=== PATIENT | female | born 1945 | race Caucasian/White ===

== ENCOUNTER 2018-05-04 15:05 | Emergency (ER) | payer MEDICARE ==
[2018-05-04] MEDS ORDERED: Lidocaine 2% 10 ML INJ ONE (15:22)
[2018-05-04] MEDS ORDERED: Rabies Vaccine Human 2.5 UNITS VIAL ONE (15:23)
[2018-05-04] MEDS ORDERED: Fentanyl 100 MCG/2 ML VIAL ONE (15:48)
[2018-05-04] MEDS ORDERED: Bacitracin Zinc 1 Packet ONE (16:10)
[2018-05-04] MEDS ORDERED: cefTRIAXone\\ROCEPHIN 1 GM VIAL ONE (16:43)
[2018-05-04] MEDS ORDERED: Lidocaine 1% PF 5 ML VIAL ONE (16:43)
== END 2018-05-04 17:05 | disposition home or self-care (01) ==
LOC: SCSER 15:05
DX: L03.115 Cellulitis of right lower limb (principal); F17.210 Nicotine dependence, cigarettes, uncomplicated
CPT/HCPCS: 10060; 87070; 87077; 87186; 87205; 90375; 90471; 90675; 96372; J0696; J2001; J3010

== ENCOUNTER 2018-05-05 16:46 | Emergency (ER) | payer MEDICARE | END 2018-05-05 17:33 | disposition home or self-care (01) | LOC: SCSER 16:46 | DX: Z48.817 Encounter for surgical aftercare following surgery on the skin and subcutaneous tissue (principal); Z71.6 Tobacco abuse counseling; F17.210 Nicotine dependence, cigarettes, uncomplicated; Z79.899 Other long term (current) drug therapy | CPT/HCPCS: 99406 ==

== ENCOUNTER 2018-05-08 13:27 | Emergency (ER) | payer MEDICARE | END 2018-05-08 14:00 | disposition home or self-care (01) | LOC: SCSER 13:27 | DX: Z48.817 Encounter for surgical aftercare following surgery on the skin and subcutaneous tissue (principal); F17.210 Nicotine dependence, cigarettes, uncomplicated; Z79.899 Other long term (current) drug therapy ==

== ENCOUNTER 2018-05-08 17:32 | Inpatient (IN) | payer MEDICARE ==
[2018-05-08 18:03] LABS: #Eosinphils 0.1 thou/uL (0.0-0.7); #Lymphocytes 1.4 thou/uL (1.20-3.40); #Monocytes 0.4 thou/uL (0.11-0.59); #Neutrophils 5.6 thou/uL (1.40-6.50); %Basophils 0.5 % (0.0-1.0); %Lymphocytes 18.2 % (21.0-51.0); %Monocytes 5.7 % (0.0-10.0); %Neutrophils 74.7 % (42.0-75.0); Hemoglobin 13.5 g/dL (12.0-16.0); Mean Corpuscular HGB CONC 34.6 g/dL (32.0-36.0); Mean Corpuscular Hemoglobin 33.4 pg (27.0-31.0); Mean Corpuscular Volume 96.6 fL (78.0-98.0); Mean Platelet Volume 6.9 fL (7.4-10.4); Platelet Count 297 thou/uL (130-400); RBC Distribution Width 11.8 % (11.5-14.5); Red Blood Cell (RBC) Count 4.04 mill/uL (4.20-5.40); White Blood Cell (WBC) Count 7.5 thou/uL (4.8-10.8)
[2018-05-08] MEDS ORDERED: Ondansetron HCl/PF 4 MG/2 ML Vial ONE (18:11)
[2018-05-08 18:28] LABS: CKMB 0.6 ng/mL (0-6.6); Troponin I Less than 0.010 ng/mL (< 0.028)
--- NOTE | 2018-05-08 19:13 | ULT ---
SONOGRAM RIGHT UPPER QUADRANT: HISTORY: Right upper quadrant pain. FINDINGS: Multiple shadowing stones throughout the gallbladder lumen. No gallbladder wall thickening or perich olecystic fluid. The gallbladder is dilated, up to 10.9 cm. The common duct is 1.2 cm. The liver i s unremarkable without a focal mass. No free fluid. IMPRESSION: 1. Cholelithiasis. 2. Dilatation of the common duct and distention of the gallbladder may reflect central biliary obstr uction. Clinical correlation regarding other signs and symptoms of central biliary obstruction and/o r acute cholecystitis is required. POS: [facility]
[2018-05-08 19:35] LABS: ALT (SGPT) 372 U/L (8-55); AST (SGOT) 341 U/L (5-34); Albumin 3.8 g/dL (3.4-4.8); Alkaline Phosphatase 418 U/L (40-150); Anion Gap 18 mmol/L (10-20); BUN (Urea Nitrogen) 15 mg/dL (9.8-20.1); Bilirubin, Total 1.8 mg/dL (0.2-1.2); Calc. Creatinine Clearance 0 mL/min (70-130); Calcium 9.9 mg/dL (7.8-10.44); Carbon Dioxide 22 mmol/L (23-31); Chloride 104 mmol/L (98-107); Estimated GFR-MDRD 76; Globulin 3.1 g/dL (2.4-3.5); Glucose 132 mg/dL (83-110); Lipase 28 U/L (8-78); Potassium 3.8 mmol/L (3.5-5.1); Protein, Total 6.9 g/dL (6.0-8.3); Sodium 140 mmol/L (136-145)
[2018-05-08] MEDS ORDERED: Morphine 4 MG/ML VIAL ONE (21:06)
[2018-05-08] MEDS ORDERED: Dextrose 50% Abboject 50 ML SYRINGE SLOW IVP PRN (22:04)
[2018-05-08] MEDS ORDERED: Famotidine/PF 20 mg/2ml Vial SLOW IVP SCH (22:04)
[2018-05-08] MEDS ORDERED: Ketorolac Tromethamine 30 MG/ML VIAL IVP PRN (22:04)
[2018-05-08] MEDS ORDERED: Promethazine HCl 25 MG/ML VIAL IM PRN (22:04)
[2018-05-08] MEDS ORDERED: Calcium Carbonate 500 MG ChewTAB PO PRN (22:04)
[2018-05-08] MEDS ORDERED: Famotidine 20 MG TAB PO SCH ×2 (22:04→23:45)
[2018-05-08] MEDS ORDERED: Dextrose 5% in Water 1,000 ML IV PRN (22:04)
[2018-05-08] MEDS ORDERED: Morphine 4 MG/ML VIAL SLOW IVP PRN (22:04)
[2018-05-08] MEDS ORDERED: hydrALAZINE 20 MG/ML VIAL SLOW IVP PRN (22:04)
[2018-05-08] MEDS ORDERED: Mag-Al 1200 mg/1200 mg/30 ML UDCUP PO PRN (22:04)
[2018-05-08] MEDS ORDERED: cefOXitin 2 GM in Sodium Chloride 0.9% 100 ML IVPB SCH (22:30)
[2018-05-08] MEDS: D5 1/2 NS w/20 mEq KCL 1,000 ML IV SCH (23:06)
[2018-05-09] MEDS: cefOXitin 2 GM in Sodium Chloride 0.9% 100 ML IVPB SCH ×3 (05:41→21:56)
[2018-05-09 05:55] VITALS: BMI 32.3
[2018-05-09 06:03] LABS: #Eosinphils 0.1 thou/uL (0.0-0.7); #Monocytes 0.6 thou/uL (0.11-0.59); #Neutrophils 3.1 thou/uL (1.40-6.50); %Basophils 0.3 % (0.0-1.0); %Eosinophils 2.2 % (0.0-10.0); %Lymphocytes 33.7 % (21.0-51.0); %Monocytes 10.7 % (0.0-10.0); Hemoglobin 11.4 g/dL (12.0-16.0); Mean Corpuscular HGB CONC 33.4 g/dL (32.0-36.0); Mean Corpuscular Hemoglobin 32.7 pg (27.0-31.0); Mean Corpuscular Volume 97.7 fL (78.0-98.0); Platelet Count 262 thou/uL (130-400); RBC Distribution Width 11.9 % (11.5-14.5); White Blood Cell (WBC) Count 5.8 thou/uL (4.8-10.8)
[2018-05-09 06:17] LABS: ALT (SGPT) 425 U/L (8-55); AST (SGOT) 405 U/L (5-34); Albumin 3.2 g/dL (3.4-4.8); Alkaline Phosphatase 357 U/L (40-150); Anion Gap 12 mmol/L (10-20); BUN (Urea Nitrogen) 9 mg/dL (9.8-20.1); Calc. Creatinine Clearance 94 mL/min (70-130); Calcium 8.8 mg/dL (7.8-10.44); Carbon Dioxide 27 mmol/L (23-31); Chloride 105 mmol/L (98-107); Estimated GFR-MDRD 82; Globulin 2.4 g/dL (2.4-3.5); Glucose 131 mg/dL (83-110); Lipase 12 U/L (8-78); Potassium 3.8 mmol/L (3.5-5.1); Protein, Total 5.6 g/dL (6.0-8.3); Sodium 140 mmol/L (136-145)
[2018-05-09] MEDS: Ondansetron HCl/PF 4 MG/2 ML Vial IVP PRN ×2 (06:39→21:56)
[2018-05-09] MEDS: D5 1/2 NS w/20 mEq KCL 1,000 ML IV SCH ×2 (08:36→17:34)
[2018-05-09] MEDS: Famotidine 20 MG TAB PO SCH ×2 (08:37→20:34)
--- NOTE | 2018-05-09 09:42 | HP ---
CHIEF COMPLAINT: Epigastric pain. HISTORY OF PRESENT ILLNESS: This is a 72-year-old female with no significant past medical history wh o saw me in February of this year in the office for gallstones. She had had 1 attack previously. She dobbs s never had a history of jaundice or pancreatitis. In fact, her attack at that point had been fairly mild and she was holding off on surgery until a later date given her overall lack of symptoms. She now presents with a 2-day history of epigastric pain associated with nausea. Pain was unrelenting. She went to the emergency room overnight. She was seen by Dr. Parikh and found to have a dilated c ommon bile duct, gallstones and elevated liver function test. No fevers or chills. She has been hem odynamically stable. PAST MEDICAL HISTORY: She denies. PAST SURGICAL HISTORY: Hysterectomy. MEDICINES TAKEN DAILY: She is on Keflex and doxycycline for a cat bite to her right lower extremity. ALLERGIES: PENICILLIN. SOCIAL HISTORY: No smoking, alcohol or other drugs. REVIEW OF SYSTEMS: Ten system review of systems otherwise negative unless described above. PHYSICAL EXAMINATION: VITAL SIGNS: Blood pressure is 135/89, pulse 69, respirations 18. She is afebrile. HEENT: Sclerae are anicteric. Oropharynx clear. NECK: No lymphadenopathy. CHEST: Clear. HEART: Regular rhythm. ABDOMEN: Soft. She is tender epigastric. No guarding or rebound. Well-healed low midline incision . EXTREMITIES: No ischemia or edema to extremities. There is open wound to the right lower extremity. There is no packing in place. LABORATORY DATA: White cell count is 5, hemoglobin 11, platelet count is 262. Sodium 140, potassium 3.8, creatinine 0.7. Bilirubin is up to 2, AST and ALT 405 and 425, alkaline phosphatase 357. Lipa se normal. Ultrasound shows a 12 mm common bile duct, gallstones. ASSESSMENT: Likely choledocholithiasis and cholelithiasis. PLAN: I discussed with Dr. Maldonado Martinez. I suspect she will need ERCP first followed by cholecystecto my. No real signs of cholangitis at this time. We will continue the doxycycline and she is covered with Mefoxin. Will have some wound care started on her leg.
[2018-05-09] MEDS: Doxycycline 100 MG CAP PO SCH ×2 (10:07→20:33)
--- NOTE | 2018-05-09 19:11 | CON ---
DATE OF CONSULTATION: 05/09/2018 REASON FOR CONSULTATION: Probable biliary stone. REQUESTING PHYSICIAN: Dr. Ferreira. HISTORY OF PRESENT ILLNESS: Saba Echevarria is a very pleasant 72-year-old woman with a history signifi cant only for hysterectomy and recent cat bite, for which she has been on antibiotics. She has no pr ior gastrointestinal or surgical history other than this. She reports that a few months ago, she had a couple of days of significant upper abdominal pain and was found to have gallstones. She was alre seble undergoing some workup for this, but then yesterday morning, she had the acute onset of severe un relenting pain in the epigastrium associated with nausea. There has been no fever, no emesis. She r emained hemodynamically stable and she continued to have normal bowel movements, but the pain was unr elenting and so she presented to the hospital last night. Abdominal ultrasound demonstrated cholelit hiasis without gallbladder thickening or fluid collection, and common bile duct dilation to 1.2 cm. The gallbladder is also dilated. The liver appears normal. Her LFTs are elevated with total bilirub in 2.0, alkaline phosphatase 357, AST 405, ALT 425, albumin 3.2 with some analgesia and antiemetics. She is feeling a lot better today. We are consulted for consideration of ERCP given the biliary dil ation and elevation in LFTs. The patient is actually asymptomatic at the moment. REVIEW OF SYSTEMS: Full review of systems including constitutional, head, eyes, ears, nose, throat, GI, , cardiovascular, respiratory, musculoskeletal, and neurologic systems is negative except as no dane in the HPI. PAST MEDICAL HISTORY: Nothing significant. PAST SURGICAL HISTORY: Hysterectomy. OUTPATIENT MEDICATIONS: Keflex and doxycycline. ALLERGIES: PENICILLIN. INPATIENT MEDICATIONS: Cefoxitin 2 grams q.8 hours, doxycycline 100 mg b.i.d., Pepcid 20 mg q.12 tiffanie rs, and Zofran p.r.n. SOCIAL HISTORY: No smoking, alcohol, or drug use. FAMILY HISTORY: Negative for known GI malignancy. PHYSICAL EXAMINATION: VITAL SIGNS: Temperature 97.8, pulse is 60, blood pressure 110/67, and 97% oxygen saturation on room air. GENERAL: A 72-year-old woman lying in bed comfortably in no distress. SKIN: No jaundice, no rash visible or palpable. EYES: No scleral icterus. Extraocular movements intact. ENT: Mucous membranes moist, no oral lesions. LYMPH: No submandibular, supraclavicular lymphadenopathy. THYROID: Nontender to palpation. HEART: Regular rate and rhythm. LUNGS: Clear to auscultation bilaterally. ABDOMEN: Bowel sounds present, soft and nontender to palpation just a soft and tender to palpation i n the epigastrium, but no guarding, rebound tenderness. EXTREMITIES: No peripheral edema. VESSELS: Radial pulses 2+ bilaterally. NEUROLOGICAL: Cranial nerves II-XII intact bilaterally. No focal deficits. LABORATORY STUDIES: WBC 5.8, hemoglobin 11.4, platelets 262. BUN 9, creatinine 0.7, lipase 12, tota l bilirubin 2.0, alkaline phosphatase 357, AST 405, ALT 425, albumin 3.2. IMAGING STUDIES: Abdominal ultrasound shows cholelithiasis and dilated gallbladder and dilated commo n bile duct of 1.2 cm. There is no gallbladder wall thickening or pericholecystic fluid. Liver appe ars normal. ASSESSMENT AND PLAN: 1. Cholelithiasis. 2. Common bile duct dilation. 3. Elevated liver function tests. I discussed with the patient that her constellation of symptoms and findings gives a high probability of retained common bile duct stone. Despite this, there is no evidence of cholangitis with normal w max count and no fever. I do agree with antibiotic coverage and with plan for cholecystectomy. She does indeed warrant preoperative ERCP, we will plan to get this done tomorrow. I discussed the shanel cations for the procedure as well as the benefits and potential risk, particularly for post-ERCP panc reatitis. The patient expresses agreement and desires to proceed. We will plan for ERCP tomorrow. Thank you for the consultation. Please call any time with questions or concerns.
[2018-05-10] MEDS: D5 1/2 NS w/20 mEq KCL 1,000 ML IV SCH ×4 (01:14→22:30)
[2018-05-10] MEDS: cefOXitin 2 GM in Sodium Chloride 0.9% 100 ML IVPB SCH ×3 (06:05→22:31)
[2018-05-10] MEDS: Famotidine 20 MG TAB PO SCH ×2 (08:37→22:30)
[2018-05-10] MEDS: Doxycycline 100 MG CAP PO SCH ×2 (08:37→22:31)
--- NOTE | 2018-05-10 11:57 | PRG ---
DATE OF SERVICE: 05/10/2018 Ms. Echevarria is complaining of some urinary urgency and inability to completely void. Her abdominal pa in is improved. Her abdomen is soft, tender epigastric. Her vital signs are stable and she is afebr ile. ASSESSMENT: Cholelithiasis with choledocholithiasis. PLAN: ERCP today, laparoscopic cholecystectomy tomorrow, likely home Tuesday. Continue to pack right lower extremity wound.
[2018-05-10] MEDS ORDERED: Iothalamate Meglumine 60% 50 ML VIAL FS ONE (17:51)
[2018-05-10] MEDS ORDERED: Indomethacin 50 MG SUPP ONE ×2 (17:52→17:53)
[2018-05-10] MEDS ORDERED: Midazolam HCl 2 mg/2 ml Vial ONE (17:58)
[2018-05-10] MEDS ORDERED: Fentanyl 100 MCG/2 ML VIAL ONE (17:58)
[2018-05-10] MEDS ORDERED: Promethazine HCl 25 MG/ML VIAL SLOW IVP PRN (19:08)
[2018-05-10] MEDS ORDERED: Promethazine HCl 25 MG/ML VIAL IM PRN (19:08)
[2018-05-10] MEDS ORDERED: Ondansetron HCl/PF 4 MG/2 ML Vial IVP PRN (19:08)
--- NOTE | 2018-05-10 19:47 | RAD ---
ERCP INTRAOPERATIVE FLUOROSCOPY 05/10/18 HISTORY: Cholecystitis. FINDINGS/IMPRESSION: Intraoperative fluoroscopy is provided for ERCP procedure. There is catheterization and contrast opac ification of the common duct that is upper limits of normal in size. No filling defects of the common duct are reliably demonstrated although there is partial opacification of a gallbladder with multipl e filling defects consistent with gallstones. POS: [facility]
[2018-05-10] MEDS ORDERED: Clopidogrel Bisulfate 75 MG TAB ONE (20:05)
--- NOTE | 2018-05-10 23:25 | OP ---
DATE OF PROCEDURE: 05/10/2018 PROCEDURE: Endoscopic retrograde cholangiopancreatography with sphincterotomy and stone extraction. INDICATION FOR PROCEDURE: Choledocholithiasis. DESCRIPTION OF PROCEDURE: After the risks and benefits of the procedure were explained to the patien t including risks of bleeding, infection, perforation, reactions to anesthesia, aspiration and/or kari n, informed consent was obtained. The patient was then taken to the endoscopy suite where general en dotracheal tube intubation was performed with general anesthesia. Once intubation was performed and adequate sedation was achieved, the patient was then rolled into a supine position in preparation for the procedure. Once in proper position and fluoroscopy was confirmed, the standard duodenoscope was introduced into the mouth with intubation of the esophagus, stomach and the proximal small intestine with the findings listed below. There were limited views of the esophagus, stomach and small intest ine during this portion of the examination; however, the ampulla was adequately identified. Once christina ntified, a 5 mm sphincterotome was introduced into the ampulla with a guidewire placed within the hep atic biliary tree. Once the wire was successfully in place, contrast was instilled into the common b ile duct with two filling defects noted within the mid to proximal common bile duct. Then, using the sphincterotome, an adequate sphincterotomy was performed with good hemostasis achieved afterwards, g olden bile was seen emanating from the ampulla after the sphincterotomy. Then using a balloon, it wa s advanced into the common bile duct using fluoroscopy with the balloon inflated to approximately 12 mm in size and successfully extracting 2 stones from the common bile duct. The stones were yellow an d dark pigmented in coloration with the stones measuring approximately 4 mm and 3-4 mm in size respec tively. Repeat occlusion cholangiogram after the extraction of the stones was performed with no di tional filling defects. Two additional balloon sweeps were performed in the common bile duct with no additional stones extracted. At which point, all equipment was then removed from the patient and th e procedure was terminated. The patient tolerated the procedure well with no immediate perioperative complications. Indomethacin 100 mg per rectum was administered prior to the ERCP. ERCP FINDINGS: Limited views were obtained of the esophagus, stomach and the proximal small intestin e, but with the views obtained, normal appearing mucosa was seen in the esophagus, stomach and proxim al small intestine with no evidence of erosions, ulcerations, mass, lesions, or active/recent bleedin g. Once the ampulla was identified, a 5 mm sphincterotome was advanced into the ampulla and using a guidewire maintained position within the hepatic biliary tree. Two filling defects were identified w ith instillation of contrast dye with the common bile duct measuring approximately 9-10 mm in size, a t which point a successful sphincterotomy was performed using the sphincterotome with good hemostasis achieved. Once an adequate sphincterotomy was performed, a balloon was advanced into the sphinctero yasmani and the common bile duct with successive balloon sweeps performed. Two stones were extracted fr om the common bile duct with yellow pigmented color and dark pigmented coloration measuring approxima tely 4 mm and 3-4 mm respectively. Three successive balloon sweeps afterward were performed with no additional stones extracted and occlusion cholangiogram performed at the end of the procedure showing no additional filling defects within the common bile duct. At which point, all equipment was then r emoved from the patient and the procedure terminated. IMPRESSION: Presence of choledocholithiasis with a dilated common bile duct to 9-10 mm in size, now status post sphincterotomy and successful extraction of 2 pigmented stones measuring 3-4 mm and 4 mm. RECOMMENDATIONS: 1. Would continue to trend LFTs tomorrow for evaluation of the liver parenchyma/transaminitis and no ting decrease following successful stone extraction. 2. Would defer to General Surgery service for timing of cholecystectomy, but should be performed dur ing this hospitalization. 3. We will monitor for signs of post-ERCP pancreatitis. 4. Would continue with antibiotic administration as you are doing until time of the cholecystectomy. We will continue to follow. Please call with any additional questions.
[2018-05-11] MEDS: cefOXitin 2 GM in Sodium Chloride 0.9% 100 ML IVPB SCH (05:48)
[2018-05-11] MEDS: D5 1/2 NS w/20 mEq KCL 1,000 ML IV SCH (08:51)
[2018-05-11] MEDS: Famotidine 20 MG TAB PO SCH ×2 (08:52→22:12)
[2018-05-11] MEDS: Doxycycline 100 MG CAP PO SCH (08:52)
[2018-05-11] MEDS ORDERED: Bupivacaine/Epinephrine 0.25% 30 ML VIAL ONE (10:51)
[2018-05-11] MEDS ORDERED: Fentanyl 100 MCG/2 ML VIAL ONE ×4 (10:55→12:34)
[2018-05-11] MEDS ORDERED: Mag-Al 1200 mg/1200 mg/30 ML UDCUP PO PRN (13:26)
[2018-05-11] MEDS ORDERED: hydrALAZINE 20 MG/ML VIAL SLOW IVP PRN (13:26)
[2018-05-11] MEDS ORDERED: Calcium Carbonate 500 MG ChewTAB PO PRN (13:26)
[2018-05-11] MEDS ORDERED: HYDROcodone/Acetaminophen 10/325 mg Tablet PO PRN (13:26)
[2018-05-11] MEDS ORDERED: Ondansetron HCl/PF 4 MG/2 ML Vial IVP PRN (13:26)
[2018-05-11] MEDS ORDERED: Dextrose 50% Abboject 50 ML SYRINGE SLOW IVP PRN (13:26)
[2018-05-11] MEDS ORDERED: Dextrose 5% in Water 1,000 ML IV PRN (13:26)
[2018-05-11] MEDS ORDERED: Promethazine HCl 25 MG/ML VIAL IM PRN (13:26)
[2018-05-11] MEDS ORDERED: Morphine 4 MG/ML VIAL SLOW IVP PRN (13:26)
[2018-05-11] MEDS ORDERED: Rabies Vaccine Human 2.5 UNITS VIAL IM ONE (13:30)
--- NOTE | 2018-05-11 14:36 | OP ---
DATE OF PROCEDURE: 05/11/2018 PREOPERATIVE DIAGNOSES: Symptomatic cholelithiasis, choledocholithiasis. POSTOPERATIVE DIAGNOSES: Symptomatic cholelithiasis, choledocholithiasis. PROCEDURE: Laparoscopic cholecystectomy. SURGEON: Dr. Ferreira. ANESTHESIA: General. ESTIMATED BLOOD LOSS: Minimal. COMPLICATIONS: None. SPECIMEN: Gallbladder. FINDINGS: Cholelithiasis. PROCEDURE IN DETAIL: The patient was taken to the Operating Room and laid supine on the Operating Ro om table. After general anesthetic was obtained, the abdomen was prepped and draped in a sterile fash ion. A curved incision was made below the umbilicus. Cautery was used to dissect down to the umbilica l fascia. Umbilical fascia was incised and held up using a Maricarmen. The abdominal cavity was entered u sing a Flori clamp. Holding stitch of Vicryl was placed on each side of the fascia. Villar trocar was placed. High-flow pneumoperitoneum was obtained. An upper midline 5-mm port and two right upper quad rant 5-mm ports were placed under direct camera visualization. The gallbladder was retracted from the gallbladder fossa. The peritoneum of the gallbladder was opened anteriorly and posteriorly. The crit ical view triangle was seen showing only the cystic duct and cystic artery branching from medial to l ateral. There were no other branching structures. Two clips were placed proximally on the cystic duct and one laterally. It was cut using laparoscopic scissors. The cystic artery was taken in the same w ay. Electrocautery was then used to dissect the gallbladder out of the gallbladder fossa. The gallbla dder was placed in an Endo catch bag and brought out through the Villar. There was no bleeding or tip e in the liver bed. The cystic duct stump and cystic artery stump were intact without evidence of ext ravasation or bleeding. All port sites were infiltrated using local anesthesia. All ports were remove d under camera visualization. Pneumoperitoneum was let down. The Vicryl was used to close the fascial defect below the umbilicus. All incisions were irrigated and closed using 4-0 Monocryl and DermaBond . The patient was en route to Recovery in stable condition. All instrument counts, needle counts and lap counts were correct.
[2018-05-11] MEDS: Sodium Chloride 0.9% 1,000 ML IV SCH (16:16)
--- NOTE | 2018-05-11 17:04 | EKG ---
Test Reason : STAT Blood Pressure : / mmHG Vent. Rate : 053 BPM Atrial Rate : 053 BPM P-R Int : 148 ms QRS Dur : 074 ms QT Int : 446 ms P-R-T Axes : 030 014 042 degrees QTc Int : 418 ms Sinus bradycardia with sinus arrhythmia Septal infarct , age undetermined cannot be excluded Abnormal ECG Confirmed by ALISON BEY ([id number]) on 05/11/2018 5:04:19 PM Referred By: Confirmed By:ALISON BEY
[2018-05-11] MEDS ORDERED: Enoxaparin Sodium 40 MG/0.4 ML SYRINGE SC SCH (21:00)
[2018-05-11] MEDS: HYDROcodone/Acetaminophen 10/325 mg Tablet PO PRN (22:11)
[2018-05-11] MEDS: Famotidine/PF 20 mg/2ml Vial SLOW IVP SCH (22:18)
[2018-05-12] MEDS: Sodium Chloride 0.9% 1,000 ML IV SCH (06:47)
[2018-05-12] MEDS: HYDROcodone/Acetaminophen 10/325 mg Tablet PO PRN (08:30)
[2018-05-12] MEDS: Famotidine 20 MG TAB PO SCH (08:30)
[2018-05-12] MEDS: Famotidine/PF 20 mg/2ml Vial SLOW IVP SCH (08:32)
[2018-05-12 10:58] VITALS: BP 114/61; TEMP 98.6
--- NOTE | 2018-05-12 12:21 | DIS ---
DATE OF ADMISSION: 05/08/2018 DATE OF DISCHARGE: 05/12/2018 ADMIT DIAGNOSES: Acute cholecystitis with choledocholithiasis. Abscess of right lower extremity. DISCHARGE DIAGNOSES: Acute cholecystitis with choledocholithiasis plus abscess of right lower extrem ity. PROCEDURES: ERCP and laparoscopic cholecystectomy both without complication. CONDITION AT DISCHARGE: Improved. STAFF: Dr. Otto Ferreira. HOSPITAL COURSE: The patient was admitted and found to have elevated liver function test, underwent ERCP followed by elective laparoscopic cholecystectomy. She has been bitten by a cat and had been dobbs ving a right lower extremity infection treated as an outpatient. This wound was debrided in the oper ating room and on discharge she is discharged home with home health. Sayra sent to her ph armacy. She will follow up with me in 2 weeks.
== END 2018-05-12 14:45 | disposition home health service (06) | DRG 418 ==
LOC: ERS 17:32 → SURG B 22:01
PROVIDERS: ADMIT Surgery; ATTEND Surgery
PROC: 0FC98ZZ Extirpation of Matter from Common Bile Duct, Via Natural or Artificial Opening Endoscopic (ICD-10-PCS; 2018-05-10)
PROC: BF101ZZ Fluoroscopy of Bile Ducts using Low Osmolar Contrast (ICD-10-PCS; 2018-05-10)
PROC: 0F798ZZ Dilation of Common Bile Duct, Via Natural or Artificial Opening Endoscopic (ICD-10-PCS; 2018-05-10)
PROC: 0FT44ZZ Resection of Gallbladder, Percutaneous Endoscopic Approach (ICD-10-PCS; principal; 2018-05-11)
DX: K80.62 Calculus of gallbladder and bile duct with acute cholecystitis without obstruction (principal); L02.415 Cutaneous abscess of right lower limb; W55.01XD Bitten by cat, subsequent encounter; Z88.0 Allergy status to penicillin; M79.7 Fibromyalgia; Z85.42 Personal history of malignant neoplasm of other parts of uterus; F17.210 Nicotine dependence, cigarettes, uncomplicated
CPT/HCPCS: 36415; 74330; 76705; 80053; 82553; 83690; 84484; 85025; 87040; 88304; 90675; 93005; 93010; 96361; 96374; 96375; 96376; 99283; 99406; A4216; J0694; J1610; J1650; J2250; J2270; J2405; J3010; J7050; Q9961

== ENCOUNTER 2018-05-25 16:24 | Day surgery (SDC) | payer MEDICARE ==
[2018-05-25] MEDS ORDERED: Rabies Vaccine Human 2.5 UNITS VIAL ONE (16:54)
== END 2018-05-26 16:47 | disposition home or self-care (01) ==
LOC: SCSER/OP 16:24
PROVIDERS: ATTEND Emergency Medicine
DX: Z23 Encounter for immunization (principal); Z79.899 Other long term (current) drug therapy; Z88.0 Allergy status to penicillin
CPT/HCPCS: 90471; 90675

== ENCOUNTER 2018-06-01 16:59 | Day surgery (SDC) | payer MEDICARE ==
[2018-06-01] MEDS ORDERED: Rabies Vaccine Human 2.5 UNITS VIAL ONE (17:20)
== END 2018-06-01 17:29 | disposition home or self-care (01) ==
LOC: SCSER/OP 16:59
DX: Z23 Encounter for immunization (principal); Z88.0 Allergy status to penicillin
CPT/HCPCS: 90471; 90675

== ENCOUNTER 2018-12-05 15:10 | Outpatient (CLI) | payer MEDICARE ==
--- NOTE | 2018-12-05 15:52 | BD ---
DEXA DENSITOMETRY: INDICATIONS: A 73-year-old female for postmenopausal osteoporosis screening. FINDINGS: LUMBAR SPINE BMD (g/cm2) T-SCORE L1 1.327 3.1 L2 1.280 2.3 L3 1.341 2.3 L4 1.213 1.4 TOTAL 1.279 2.1 FEMORAL NECK DENSITY 0.699 -1.3 TOTAL 0.957 0.1 IMPRESSION: 1. The bone mineral density of the lumbar spine is within the normal range. 2. The bone mineral density of the femoral neck indicates osteopenia. 3. The 10 year fracture risk for a major osteoporotic fracture is 10% and for a hip fracture is 2.6% . POS: [facility]
== END 2018-12-05 15:11 | disposition home or self-care (01) ==
LOC: BICMAMMO 15:10
PROVIDERS: ATTEND Family Medicine
DX: Z13.820 Encounter for screening for osteoporosis (principal); Z78.0 Asymptomatic menopausal state; M85.88 Other specified disorders of bone density and structure, other site
CPT/HCPCS: 77080

== ENCOUNTER 2023-07-18 13:52 | Outpatient (CLI) | payer MEDICARE ==
[2023-07-18 15:06] LABS: #Monocytes 0.5 10x3/uL (0.0-1.1); #Neutrophils 3.9 10x3/uL (1.5-8.4); %Basophils 0.5 % (0.0-2.0); %Eosinophils 0.7 % (0.0-6.0); %Lymphocytes 25.8 % (18.0-47.0); %Monocytes 7.5 % (0.0-10.0); %Neutrophils 65.3 % (40.0-75.0); Hematocrit 40.3 % (34.9-44.5); Hemoglobin 13.2 g/dL (12.0-15.5); Mean Corpuscular HGB CONC 32.8 g/dL (32.0-36.0); Mean Corpuscular Volume 97.6 fl (81.6-98.3); Mean Platelet Volume 10.7 fl (7.4-10.4); Platelet Count 228 10x3/uL (150-450); RBC Distribution Width 12.7 % (11.5-14.5); Red Blood Cell (RBC) Count 4.13 10x6/uL (3.90-5.03)
[2023-07-18 15:29] LABS: Anion Gap 13 mmol/L (10-20); BUN (Urea Nitrogen) 9 mg/dL (9.8-20.1); Calc. Creatinine Clearance 0 mL/min (70-130); Calcium 9.3 mg/dL (7.8-10.44); Carbon Dioxide 27 mmol/L (23-31); Chloride 106 mmol/L (98-107); Estimated GFR 90; Glucose 100 mg/dL (83-110); Potassium 3.4 mmol/L (3.5-5.1); Sodium 143 mmol/L (136-145)
== END 2023-07-18 13:53 | disposition home or self-care (01) ==
LOC: LABBT 13:52
PROVIDERS: ATTEND Surgery
DX: Z01.818 Encounter for other preprocedural examination (principal); K43.2 Incisional hernia without obstruction or gangrene
CPT/HCPCS: 80048; 85025; 93005; 93010

== ENCOUNTER 2023-07-21 06:59 | Day surgery (SDC) | payer MEDICARE ==
[2023-07-18 14:44] VITALS: BMI 25.7
[2023-07-21] MEDS ORDERED: EPINEPHrine 1 MG/ML VIAL ONE (08:39)
[2023-07-21] MEDS ORDERED: Bupivacaine 0.25% HCL 30 ML VIAL ONE (08:40)
[2023-07-21] MEDS ORDERED: SUGAMMADEX SODIUM 200 MG/2 ML VIAL ONE (09:27)
[2023-07-21] MEDS ORDERED: fentaNYL PF 100 MCG/2 ML SYRINGE ONE (09:28)
[2023-07-21] MEDS ORDERED: LevoFLOXacin 500 mg/D5W 100 ML BAG ONE (09:31)
[2023-07-21] MEDS ORDERED: NEOSTIGMINE 3 MG/3 ML SYR 3 MG/3 ML SYRINGE ONE (09:40)
[2023-07-21] MEDS ORDERED: Ondansetron PF 4 MG/2 ML Vial ONE ×2 (09:40→13:10)
[2023-07-21] MEDS ORDERED: Labetalol HCl 100 MG/20 ML VIAL ONE (09:40)
[2023-07-21] MEDS ORDERED: Dexamethasone 20 MG/5 ML VIAL ONE (09:40)
[2023-07-21] MEDS ORDERED: Glycopyrrolate 0.2 MG/ML 5 ML SYRINGE ONE (09:40)
[2023-07-21] MEDS ORDERED: Rocuronium Bromide 10 MG/ML (10ML VIAL) ONE (09:40)
[2023-07-21] MEDS ORDERED: Lidocaine 1% PF 5 ML VIAL ONE (09:40)
[2023-07-21] MEDS ORDERED: PROPOFOL 200 MG/20 ML VIAL ONE (09:40)
[2023-07-21] MEDS ORDERED: Midazolam HCl 2 mg/2 ml Vial ONE (11:03)
[2023-07-21] MEDS ORDERED: fentaNYL 50 mcg/mL 1 mL Vial ONE ×4 (11:21→12:02)
[2023-07-21] MEDS ORDERED: HYDROcodone/Acetaminophen 5/325 mg Tablet ONE ×2 (14:14→14:19)
== END 2023-07-21 14:50 | disposition home or self-care (01) ==
LOC: SDC 06:59
PROVIDERS: ATTEND Surgery
PROC: 0WUF4JZ Supplement Abdominal Wall with Synthetic Substitute, Percutaneous Endoscopic Approach (ICD-10-PCS; principal; 2023-07-21)
DX: K43.9 Ventral hernia without obstruction or gangrene (principal); F17.210 Nicotine dependence, cigarettes, uncomplicated; Z90.710 Acquired absence of both cervix and uterus; Z88.0 Allergy status to penicillin
CPT/HCPCS: 49593; A4314; C1781; J0171; J3010; J1100; J1956; J2250; J2405; J2704; S0020